=== PATIENT | male | born 1965 ===

== ENCOUNTER → 2024-06-16 | Outpatient (CLI) | payer OTHER ==
[~2024-06-16] VITALS: Ht 180.3 cm; Wt 72.6 kg
[~2024-06-16] MED LIST: DOXEPIN HCL150 MG; FOSAMAX70 MG PO; INDUR; JANTOVEN2.5 MG; LIPOFEN50 MG; LOREEV XR2 MG PO; NORVASC5 MG PO; PAXIL40 MG PO; SYNTHROID112 MCG PO; TOPROL XL25 M1 PO; ZESTRIL10 M1 PO
[2024-06-16 07:33] LABS: PH,URINE 6.5 (5.0-8.0); URINE APPEARANCE Clear; URINE BILIRRUBIN Negative (NEGATIVE); URINE BLOOD Negative; URINE COLOR Yellow; URINE GLUCOSE Negative (NEGATIVE); URINE KETONE Negative (NEGATIVE); URINE LEUKOCYTE Negative; URINE NITRATE Negative; URINE PROTEIN Negative (NEGATIVE); URINE UROBILINOGEN 0.2 E.U./dl
[2024-06-16 07:35] VITALS: BP 125/71
[2024-06-16 07:43] LABS: URINE BACTERIA 0 uL (0.0-1933); URINE EPITHELIAL CELLS 0.6 uL (0.0-38.8); URINE RBC 0.2 uL (0.0-20.8); URINE WBC 0.7 uL (0.0-23.2)
[2024-06-16 07:56] LABS: HEMATOCRIT 27.6 % (39.0-48.0); MEAN CORPUSCULAR HGB CONC 30.6 g/dl (32.0-36.0); PLATELET COUNT 455 K/uL (150-450); RED BLOOD COUNT 4.78 M/uL (4.00-6.00); RED CELL DISTRIBUTION WIDTH 19.4 % (11.5-14.5)
[2024-06-16 08:03] LABS: HEMOGLOBIN 8.4 g/dL (13-16.00); MEAN CELL VOLUME 57.7 fL (80.0-100.00); MEAN CORPUSCULAR HEMOGLOBIN 17.5 pg (27.00-32.0)
[2024-06-16 08:08] LABS: INR 3.03
[2024-06-16 08:21] LABS: ALBUMIN 3.8 gm/dL (3.4-5.0); BILIRUBIN TOTAL 0.31 mg/dL (0.3-1.2); CALCIUM 9.6 mg/dL (8.5-10.1); CREATININE SERUM 0.95 mg/dL (0.70-1.30); GFR 80.87; GLOBULINA 3.9 G/DL (2.4-3.5); POTASSIUM 4.11 mEq/L (3.5-5.1); TOTAL PROTEIN 7.7 gm/dL (6.4-8.2)
[2024-06-16 10:37] LABS: PARTIAL THROMBOPLASTIN TIME 38.2 SECONDS (22.0-34.0); PROTHROMBIN TIME 30.4 SECONDS (9.0-11.5)
== END | disposition home or self-care (01) ==
LOC: RAD 06:00 → ADM 07:30 → EDSTATUS 06-23 07:30 → CIR.AMB 06-23 07:30
PROVIDERS: ATTEND Orthopaedic Surgery Hand Surgery
DX: M62.442 Contracture of muscle, left hand (principal)